=== PATIENT | female | born 1990 | race Caucasian/White ===

== ENCOUNTER 2018-08-12 18:57 | Emergency (ER) | payer OTHER ==
[~2018-08-12 18:57] MED LIST: ALBUTEROL0.09 MG/A1 INH; FLOVENT HF0.22 MG/Ac INH; NORCO 325 MG-51 TAB PO; ROBITUSSIN W/CO10 ML PO; ZITHROMAX Z PA250 MG PO
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
[2018-08-12] MEDS ORDERED: IBUPROFEN800 M1 PO (22:43)
[2018-08-12] MEDS ORDERED: CYCLOBENZAPRINE10 M1 PO (22:43)
[2018-08-12 22:59] VITALS: BP 150/100
== END 2018-08-12 23:00 ==
LOC: ERH 18:57
DX: S16.1XXA Strain of muscle, fascia and tendon at neck level, initial encounter (principal); S80.01XA Contusion of right knee, initial encounter; S80.02XA Contusion of left knee, initial encounter; S20.211A Contusion of right front wall of thorax, initial encounter; V49.50XA Passenger injured in collision with unspecified motor vehicles in traffic accident, initial encounter; Y92.9 Unspecified place or not applicable
CPT/HCPCS: 71045; 71100-RT; 73562-LT; 73562-RT; 81025